=== PATIENT | female | born 1990 | race American Indian/Alaskan Native ===

== ENCOUNTER 2016-08-17 14:59 | Emergency (ER) | payer MEDICAID ==
[2016-08-17 15:18] VITALS: TEMP 98.5; O2SAT 100
[2016-08-17 16:41] LABS: RBC URINE 1 /hpf (0-3); URINE BILIRUBIN NEGATIVE (NEGATIVE); URINE BLOOD NEGATIVE (NEGATIVE); URINE COLOR Yellow (YELLOW); URINE GLUCOSE (UA) NORMAL (Normal); URINE KETONE NEGATIVE (NEGATIVE); URINE LEUKOCYTE ESTERASE NEG Leu/uL (Negative); URINE PROTEIN NEGATIVE (NEGATIVE); URINE UROBILINOGEN NORMAL mg/dL (0.2-1.0); WBC URINE 1 /hpf (0-5)
[2016-08-17 17:04] LABS: EOS # 0.1 K/uL (0.0-0.7); MEAN CELL VOLUME 68.8 fL (81.0-99.0); MEAN PLATELET VOLUME 8.5 fL (7.2-11.7); MONO # 0.8 K/uL (0.0-0.8); NRBC % 0.1 % (0.0-2.0)
[2016-08-17 17:13] LABS: CHLORIDE 98 mmol/L (98-107); POTASSIUM 3.8 mmol/L (3.6-5.2); SODIUM 134 mmol/L (132-148)
[2016-08-17 17:15] LABS: BILIRUBIN,TOTAL < 0.1 mg/dL (0.2-1.3); CARBON DIOXIDE 24 mmol/L (22-30); GFR AFRICAN-AMERICAN > 60
[2016-08-17 17:16] LABS: ALB/GLOB RATIO 1.3 (1.0-2.1); ALKALINE PHOSPHATASE 31 U/L (38-126); ALT/SGPT 23 U/L (9-52); AST/SGOT 14 U/L (14-36); BLOOD UREA NITROGEN 8 mg/dL (7-17); CALCIUM 8.7 mg/dl (8.6-10.4); GLUCOSE,RANDOM 74 mg/dL (65-105); TOTAL PROTEIN 7.9 g/dL (6.3-8.3)
[2016-08-17 17:26] LABS: BASO % 0.6 % (0.0-2.0); EOS % 1.5 % (0.0-4.0); HEMATOCRIT 31.4 % (34.0-47.0); LYMPH # 2.5 K/uL (1.0-4.3); LYMPH % 37.6 % (20.0-40.0); MEAN CORPUSCULAR HEMOGLOBIN 20.6 pg (27.0-31.0); MONO % 12.1 % (0.0-10.0); PLATELET COUNT 287 K/uL (130-400); RED CELL DISTRIBUTION WIDTH 17.5 % (11.5-14.5); WHITE BLOOD COUNT 6.7 K/uL (4.8-10.8)
[2016-08-17 17:56] VITALS: BP 104/68; PULSE 81; RESP 18
[2016-08-17] MEDS ORDERED: Belladonna-Phenobarbital PO STA (18:16)
[2016-08-17] MEDS ORDERED: Belladonna-Phenobarbital ONE (18:19)
--- NOTE | 2016-08-17 18:20 | C.PDOC ---
History Of Present Illness 26 year old patient presents to the ED complaining of upper abdominal pain for the past 4 days. Patient states the pain is moderate to severe. The pain is non- radiating. She also complains of intermittent nausea and 2 episodes of vomiting today. Patient denies diarrhea, fever or any urinary symptoms. Patient had a Cholestcystectomy done about a year ago. She was seen at [facility] yesterday. She had a normal CT and normal blood work. She was sent home without any medications. Time Seen by Provider: 08/17/16 16:25 Chief Complaint (Nursing): Abdominal Pain History Per: Patient History/Exam Limitations: no limitations Onset/Duration Of Symptoms: Days (4) Current Symptoms Are (Timing): Still Present Context: Other Severity: Moderate Location Of Pain/Discomfort: RUQ, LUQ Radiation Of Pain To:: None Quality Of Discomfort: "Pain" Associated Symptoms: Nausea, Vomiting Exacerbating Factors: None Alleviating Factors: None Last Bowel Movement: Today Recent travel outside of the [place]: No Past Medical History Reviewed: Historical Data, Nursing Documentation, Vital Signs Vital Signs: Last Vital Signs Temp 98.5 F 08/17/16 15:11 Pulse 81 08/17/16 17:55 Resp 18 08/17/16 17:55 BP 104/68 08/17/16 17:55 Pulse Ox 100 08/21/16 08:29 - Medical History PMH: Asthma, Gall Bladder Disease Surgical History: Cholecystectomy Family History: States: Unknown Family Hx - Social History Hx Alcohol Use: Yes Hx Substance Use: No Review Of Systems Except As Marked, All Systems Reviewed And Found Negative. Constitutional: Negative for: Fever Gastrointestinal: Positive for: Nausea, Vomiting, Abdominal Pain (upper). Negative for: Diarrhea Genitourinary: Negative for: Dysuria, Frequency Physical Exam - Physical Exam Appears: Non-toxic, No Acute Distress Skin: Warm, Dry Head: Atraumatic, Normacephalic Eye(s): bilateral: Normal Inspection, EOMI Oral Mucosa: Moist Neck: Normal ROM, Supple Chest: Symmetrical Cardiovascular: Rhythm Regular Respiratory: Normal Breath Sounds, No Rales, No Rhonchi, No Wheezing Gastrointestinal/Abdominal: Soft, Tenderness (moderate to upper quadrants), No Guarding, No Rebound Back: Normal Inspection, No CVA Tenderness Extremity: Normal ROM Neurological/Psych: Oriented x3, Normal Speech, Normal Motor Gait: Steady ED Course And Treatment - Laboratory Results Result Diagrams: 08/17/16 16:59 08/17/16 16:59 O2 Sat by Pulse Oximetry: 100 (room air) Pulse Ox Interpretation: Normal Medical Decision Making Medical Decision Making: Plan: * Labs * * Toradol * Zofran * Reassess and disposition Progress: Pt had CT yesterday, unable to get results but reported "normal" very low indication of surgical abd, but discussed risk vs benifit of another CT, as well as needing more that a few hours for resolution of symptoms Labs today unremarkable. abd continues soft, plan symptomatic tx PCP f/u Disposition Counseled Patient/Family Regarding: Diagnosis, Need For Followup - Disposition Disposition: HOME/ ROUTINE Disposition Time: 18:18 Condition: GOOD Additional Instructions: Follow up with your PCP in 2 - 3 days Return to the ED for any new or worsening symptoms Prescriptions: Atropine/Hyoscyamine [] 1 tab PO TID PRN #20 tab PRN Reason: .abd pain Famotidine [Pepcid] 1 tab PO BID #30 tab Metoclopramide [Reglan] 1 tab PO TID PRN #25 tab PRN Reason: Nausea/Vomiting traMADol/Acetaminophen [Ultracet 37.5/325 mg] 1 tab PO TID PRN #10 tab PRN Reason: pain Instructions: Abdominal Pain (ED) - Clinical Impression Clinical Impression: Abdominal pain - Scribe Statement The provider has reviewed the documentation as recorded by the Scribparvin Robledo Provider Attestation: All medical record entries made by the Scribe were at my direction and personally dictated by me. I have reviewed the chart and agree that the record accurately reflects my personal performance of the history, physical exam, medical decision making, and the department course for this patient. I have also personally directed, reviewed, and agree with the discharge instructions and disposition.
== END 2016-08-17 18:27 | disposition home or self-care (01) ==
LOC: C.ER 14:59
DX: R10.10 Upper abdominal pain, unspecified (principal)
CPT/HCPCS: 80053; 81001; 83690; 84703; 85025; 96374; 96375; 99283; J1885; J2405